=== PATIENT | male | born 1940 | race Caucasian/White ===

== ENCOUNTER 2018-08-09 02:50 | Emergency (ER) | payer MEDICARE ==
[~2018-08-09] VITALS: Ht 180.3 cm; Wt 102.0 kg
[2018-08-09 03:29] LABS: BASOPHILS # (AUTO) 0.02 x10^3/uL (0-0.1); BASOPHILS % (AUTO) 0 % (0-1); EOSINOPHILS # (AUTO) 0.05 x10^3/uL (0-0.4); EOSINOPHILS % (AUTO) 1 % (1-7); LYMPHOCYTES # (AUTO) 0.65 x10^3/uL (1-3.4); LYMPHOCYTES % (AUTO) 11 % (22-44); MD NO; MEAN CORPUSCULAR HEMOGLOBIN 32.1 pg (27.5-34.5); MEAN CORPUSCULAR HGB CONC 34.1 g/dL (33.2-36.2); MEAN CORPUSCULAR VOLUME 94.3 fL (81-97); MEAN PLATELET VOLUME 6.5 fL (7.4-10.4); MONOCYTES # (AUTO) 0.53 x10^3/uL (0.2-0.8); MONOCYTES % (AUTO) 9 % (2-9); NEUTROPHILS # (AUTO) 4.93 x10^3/uL (1.8-6.8); NEUTROPHILS % (AUTO) 80 % (42-75); PLATELET COUNT 324 x10^3/uL (130-400); RED BLOOD COUNT 4.56 x10^6/uL (4.38-5.82); RED CELL DISTRIBUTION WIDTH 13.4 % (9.4-14.8)
[2018-08-09] MEDS ORDERED: SODIUM CHLORIDE FLUSH 10ML SYR IVF ONE (03:30)
[2018-08-09 03:34] LABS: ALANINE AMINOTRANSFERASE 11 U/L (12-78); ALBUMIN 3.4 g/dL (3.4-5.0); ANION GAP 9 mmol/L (5-15); CALCIUM 8.9 mg/dL (8.5-10.1); CHLORIDE 102 mmol/L (98-107); CREATININE 1.19 mg/dL (0.7-1.3)
[2018-08-09] MEDS ORDERED: MORPHINE SULFATE 4 MG/ML, 1ML ONE (03:36)
[2018-08-09 03:37] LABS: ALKALINE PHOSPHATASE 83 U/L (45-117); BILIRUBIN,TOTAL 0.8 mg/dL (0.2-1.0); TOTAL PROTEIN 7.6 g/dL (6.4-8.2)
[2018-08-09] MEDS ORDERED: AMLO2.5T3 PO (03:43)
[2018-08-09] MEDS ORDERED: ASPI-496 PO (03:44)
[2018-08-09] MEDS ORDERED: CARB1TAB47 PO (03:44)
[2018-08-09] MEDS ORDERED: DOCU100C33 PO (03:45)
[2018-08-09] MEDS ORDERED: TAMS0.4C2 PO (03:46)
[2018-08-09] MEDS ORDERED: morphine SULFATE 10 MG/ML, 1ML IVPush ONE (04:00)
[2018-08-09] MEDS ORDERED: OMNIPAQUE 350 MG/ML, 100ML BOTTLE ONE (04:33)
[2018-08-09 04:47] LABS: MICROSCOPIC INDICATED
[2018-08-09 04:51] LABS: CULTURE INDICATED? NO
[2018-08-09 06:46] VITALS: BP 144/76
== END 2018-08-09 06:53 | disposition home or self-care (01) ==
LOC: ED 03:39
DX: R33.9 Retention of urine, unspecified (principal); R10.30 Lower abdominal pain, unspecified
CPT/HCPCS: 36415; 51702; 74177; 80053; 81001; 83690; 85025; 99285; Q9967

== ENCOUNTER 2018-08-10 09:18 | Emergency (ER) | payer MEDICARE ==
[~2018-08-10] VITALS: Ht 175.3 cm; Wt 97.0 kg
[~2018-08-10 09:18] MED LIST: AMLO2.5T3 PO; ASPI-496 PO; CARB1TAB47 PO; DOCU100C33 PO; TAMS0.4C2 PO
[2018-08-10] MEDS ORDERED: HYDROmorphone 2 MG/ML, 1ML ONE (10:43)
[2018-08-10] MEDS ORDERED: HYDROmorphone 2 MG/ML, 1ML IM ONE (11:00)
[2018-08-10 12:30] VITALS: BP 123/74
== END 2018-08-10 12:33 | disposition home or self-care (01) ==
LOC: ED 10:48
DX: N40.1 Benign prostatic hyperplasia with lower urinary tract symptoms (principal); R33.8 Other retention of urine; E78.5 Hyperlipidemia, unspecified
CPT/HCPCS: 96372; 99283; J1170